=== PATIENT | male | born 1995 | race Two or more races ===

== ENCOUNTER 2024-01-16 10:00 | Emergency (ER) | payer OTHER ==
[~2024-01-16] VITALS: Ht 175.3 cm; Wt 93.0 kg
[2024-01-16] MEDS ORDERED: KETOROLAC TROMETHAMINE 30 MG VIAL IM STA (11:40)
[2024-01-16] MEDS ORDERED: CEFTRIAXONE SODIUM 1,000 MG VIAL IM STA (11:41)
[2024-01-16] MEDS ORDERED: CEFTRIAXONE SODIUM 1,000 MG VIAL ONE (12:07)
[2024-01-16] MEDS ORDERED: KETOROLAC TROMETHAMINE 30 MG VIAL ONE (12:07)
== END 2024-01-16 12:37 | disposition home or self-care (01) ==
LOC: ER 10:02
DX: L05.91 Pilonidal cyst without abscess (principal)